=== PATIENT | female | born 1985 | race Two or more races ===

== ENCOUNTER 2021-02-23 12:16 | Outpatient (CLI) | payer OTHER ==
[~2021-02-23] VITALS: Ht 160 cm; Wt 78.2 kg
[2021-02-23] MEDS ORDERED: PREN1TAB60 PO (12:23)
[2021-02-23 12:27] VITALS: BP 107/63
== END 2021-02-23 14:55 | disposition home or self-care (01) ==
LOC: LDOP 12:16
PROVIDERS: ATTEND Obstetrics & Gynecology
DX: O09.523 Supervision of elderly multigravida, third trimester (principal); Z3A.38 38 weeks gestation of pregnancy
CPT/HCPCS: 59025; 76819

== ENCOUNTER 2021-03-02 06:48 | Inpatient (IN) | payer OTHER ==
[~2021-03-02] VITALS: Ht 160 cm; Wt 77.3 kg
[~2021-03-02 06:48] MED LIST: PREN1TAB60 PO
[2021-03-02] MEDS ORDERED: FENTANYL PF 100 MCG/2ML IV PRN (07:30)
[2021-03-02] MEDS ORDERED: METOCLOPRAMIDE 5 MG/ML, 2ML IVPush PRN (07:30)
[2021-03-02] MEDS ORDERED: D5%-LACTATED RINGERS 1,000 ML IV SCH (07:30)
[2021-03-02] MEDS ORDERED: TERBUTALINE 1 MG/ML, 1ML IVPush PRN (07:30)
[2021-03-02] MEDS ORDERED: TERBUTALINE 1 MG/ML, 1ML SQ PRN (07:30)
[2021-03-02] MEDS ORDERED: OXYTOCIN 30U/ 0.9% NaCL 500ML 500 ML IV PRN (07:30)
[2021-03-02] MEDS ORDERED: MISOPROSTOL 25 MCG TABLET VG PRN (07:30)
[2021-03-02] MEDS ORDERED: ALUMINUM/MAG/SIMETHICONE 30 ML UDC PO PRN (07:30)
[2021-03-02] MEDS ORDERED: OXYTOCIN 30U/ 0.9% NaCL 500ML 500 ML IV ONE (07:30)
[2021-03-02 08:00] LABS: BASOPHILS % (AUTO) 1 % (0-1); EOSINOPHILS % (AUTO) 2 % (1-7); LYMPHOCYTES % (AUTO) 24 % (22-44); MEAN CORPUSCULAR HGB CONC 34.1 g/dL (32.4-35.8); MEAN PLATELET VOLUME 9.4 fL (7.4-10.4); MONOCYTES % (AUTO) 7 % (2-9); NEUTROPHILS % (AUTO) 67 % (42-75); PLATELET COUNT 183 x10^3/uL (130-400); RED BLOOD COUNT 4.48 x10^6/uL (3.82-5.3); RED CELL DISTRIBUTION WIDTH 14.3 % (9.6-15.2)
[2021-03-02] MEDS: LACTATED RINGERS 1,000 ML IV SCH ×3 (08:00→12:00)
[2021-03-02] MEDS ORDERED: OXYTOCIN 30U/ 0.9% NaCL 500ML 500 ML ONE (08:05)
[2021-03-02] MEDS ORDERED: NEWBORN KIT ONE (08:47)
[2021-03-02] MEDS ORDERED: FENTANYL/BUPIV./NS/PF 250 ML EPIDCONT ONE (09:53)
[2021-03-02] MEDS ORDERED: FENTANYL/BUPIV./NS/PF 250 ML EPIDCONT SCH (10:00)
[2021-03-02] MEDS ORDERED: LACTATED RINGERS 1,000 ML IV SCH (10:00)
[2021-03-02] MEDS ORDERED: NALOXONE 0.4 MG/ML, 1ML IVPush PRN (10:00)
[2021-03-02] MEDS ORDERED: EPHEDRINE 50 MG/ML, 1ML IVPush PRN (10:00)
[2021-03-02] MEDS ORDERED: LACTATED RINGERS 1,000 ML IVBOLUS PRN (10:00)
[2021-03-02] MEDS ORDERED: ACETAMINOPHEN 325 MG TABLET ONE (14:06)
[2021-03-02] MEDS ORDERED: ACETAMINOPHEN 325 MG TABLET PO PRN ×2 (14:30→18:30)
[2021-03-02] MEDS ORDERED: CEFAZOLIN 2,000 MG in SODIUM CHLORIDE 0.9% 50 ML IV STA (17:46)
[2021-03-02] MEDS ORDERED: CEFAZOLIN PMX 2GM/50ML 50 ML IVPB STA (17:49)
[2021-03-02] MEDS ORDERED: METHYLERGONOVINE 0.2 MG/ML IM PRN (18:30)
[2021-03-02] MEDS ORDERED: OXYcodone/APAP 5/325MG TABLET PO PRN (18:30)
[2021-03-02] MEDS ORDERED: SIMETHICONE 80 MG CHEW TAB PO PRN (18:30)
[2021-03-02] MEDS: OXYTOCIN 30U/ 0.9% NaCL 500ML 500 ML IV SCH (18:30)
[2021-03-02] MEDS ORDERED: MISOPROSTOL 200 MCG TABLET PR ONE (18:30)
[2021-03-02] MEDS ORDERED: DOCUSATE 100 MG CAPSULE PO PRN (18:30)
[2021-03-02] MEDS: IBUPROFEN 600 MG TABLET PO PRN (19:08)
[2021-03-02] MEDS: OXYcodone/APAP 5/325MG TABLET PO PRN (20:07)
[2021-03-02 20:30] VITALS: BP 109/70
[2021-03-02 23:58] VITALS: BP 103/67
[2021-03-03] MEDS: OXYcodone/APAP 5/325MG TABLET PO PRN ×3 (00:13→16:22)
[2021-03-03] MEDS: IBUPROFEN 600 MG TABLET PO PRN ×3 (01:49→16:22)
[2021-03-03 03:34] LABS: BASOPHILS % (AUTO) 1 % (0-1); EOSINOPHILS % (AUTO) 1 % (1-7); LYMPHOCYTES % (AUTO) 21 % (22-44); MEAN CORPUSCULAR HEMOGLOBIN 29.3 pg (27.0-34.8); MEAN CORPUSCULAR HGB CONC 34.6 g/dL (32.4-35.8); MEAN PLATELET VOLUME 9.4 fL (7.4-10.4); MONOCYTES % (AUTO) 6 % (2-9); NEUTROPHILS % (AUTO) 71 % (42-75); PLATELET COUNT 154 x10^3/uL (130-400); RED BLOOD COUNT 4.08 x10^6/uL (3.82-5.3); RED CELL DISTRIBUTION WIDTH 14.2 % (9.6-15.2)
[2021-03-03 03:59] VITALS: BP 99/65
[2021-03-03] MEDS: OXYTOCIN 30U/ 0.9% NaCL 500ML 500 ML IV SCH ×2 (04:30→14:30)
[2021-03-03 08:02] VITALS: BP 100/67
[2021-03-03] MEDS ORDERED: PRENATAL VIT/IRON/FA 1 EACH TABLET PO SCH (09:00)
[2021-03-03 14:01] VITALS: BP 91/60
[2021-03-03 15:26] VITALS: BP 105/65
[2021-03-03] MEDS ORDERED: OXYC1TAB14 PO (17:28)
[2021-03-03] MEDS ORDERED: IBUP-1222 PO (17:28)
[2021-03-03] MEDS ORDERED: DOCU-131 PO (17:28)
== END 2021-03-03 19:50 | disposition home or self-care (01) | DRG 807 ==
LOC: LDIP 06:48 → 2NW 21:32
PROVIDERS: ADMIT Obstetrics & Gynecology; ATTEND Obstetrics & Gynecology
PROC: 10E0XZZ Delivery of Products of Conception, External Approach (ICD-10-PCS; principal; 2021-03-02)
PROC: 10907ZC Drainage of Amniotic Fluid, Therapeutic from Products of Conception, Via Natural or Artificial Opening (ICD-10-PCS; 2021-03-02)
PROC: 3E033VJ Introduction of Other Hormone into Peripheral Vein, Percutaneous Approach (ICD-10-PCS; 2021-03-02)
PROC: 3E0R3BZ Introduction of Anesthetic Agent into Spinal Canal, Percutaneous Approach (ICD-10-PCS; 2021-03-02)
PROC: 00HU33Z Insertion of Infusion Device into Spinal Canal, Percutaneous Approach (ICD-10-PCS; 2021-03-02)
DX: O76 Abnormality in fetal heart rate and rhythm complicating labor and delivery (principal); Z37.0 Single live birth; Z3A.39 39 weeks gestation of pregnancy; Z86.32 Personal history of gestational diabetes; Z20.822 Contact with and (suspected) exposure to COVID-19
CPT/HCPCS: 36415; 85025; 86592; 86850; 86900; 87635; G0378; J0690; J2590; J7120